=== PATIENT | male | born 1975 | race Caucasian/White ===

== ENCOUNTER 2018-09-22 12:46 | Emergency (ER) | payer MEDICAID, BC, SELFPAY ==
[2018-09-22 12:47] VITALS: BP 169/113; PULSE 108; RESP 26; TEMP 36.6; O2SAT 97; BMI 36.9
--- NOTE | 2018-09-22 13:07 | CT_ITS ---
STUDY: CT ABDOMEN AND PELVIS WITHOUT CONTRAST REASON FOR EXAM: Male, 43 years old. Left flank pain. RADIATION DOSAGE (If Supplied By Facility): CTDIvol = ( 24.16 ) mGy, DLP = ( 1424.19 ) mGycm TECHNIQUE: Transaxial images were obtained from the dome of the diaphragm to the symphysis pubis without oral contrast, and without intravenous contrast. Sagittal and coronal images were reconstructed. Individualized dose optimization techniques were used for this CT. COMPARISON: None. FINDINGS: Mild degree of increased markings at the lung bases suggestive of bibasilar atelectasis. The visualized portions of the heart are within normal limits. There is decreased attenuation of the liver consistent with steatosis. Normal gallbladder and extrahepatic biliary system. Normal spleen. Normal pancreas. Normal bilateral adrenal glands. Normal right kidney. Normal left kidney. Normal visualized stomach. Normal small intestine. Normal colon. The appendix is visualized and appears normal. Normal abdominal aorta. Normal inferior vena cava. There is borderline retroperitoneal lymphadenopathy with enlarged nodes no greater than 10mm in the short axis diameter. There is a 3 mm calculus along the left side of the bladder base suggestive of a recently passed left ureteral calculus. Small bilateral inguinal hernias containing fat. There are mild degenerative changes of the visualized lumbar spine. CT/Abdomen/Pelvis without Cont IMPRESSION: Findings in keeping with a recently passed 3 mm left ureteral calculus. Fatty infiltration of the liver. Electronically Signed: Uday Thayer MD at 14:22 EST , Service support ,
[2018-09-22] MEDS: Ondansetron 4 MG/2 ML Vial IV (13:15)
[2018-09-22] MEDS: Ketorolac 30 MG/ML Syringe 15 MG IV (13:15)
[2018-09-22] MEDS: morphine 8 MG/ML Syringe IV (13:15)
[2018-09-22] MEDS: 0.9% Normal Saline 1,000 ML 250 ML IV (13:16)
[2018-09-22 13:25] LABS: Absolute Lymphocyte Count 1.37 X10^3/ul (0.83-4.51); Absolute Neutrophil Count 5.8 X10^3/uL (2.0-7.7); Basophil# 0.03 X10^3/uL; Basophil% 0.4 % (0-1); Eosinophil# 0.16 X10^3/uL; Hematocrit 43.9 % (40-54); Hemoglobin 14.7 g/dl (13.0-16.5); Lymphocyte # 1.37 X10^3/ul (4.0); Lymphocyte % 17.4 % (19-41); Mean Corp Hgb Conc 33.5 g/gl (32-36); Mean Corpuscular Hgb 29.9 pg (27.0-32.0); Mean Corpuscular Volume 89.4 fL (80-94); Mean Platelet Vol. 9.8 fl (6.2-12.0); Monocyte# 0.49 X10^3/uL; Monocyte% 6.2 % (0-10); Neutrophil # 5.82 X10^3/uL (2.7-7.7); Neutrophil % 73.7 % (47-70); POSITIVE COUNT NO; POSITIVE DIFFERENTIAL NO; POSITIVE MORPHOLOGY NO; Platelet Count 228 K/mm3 (150-450); RBC Distribution Width CV 13.8 % (11.6-14.6); RBC Distribution Width SD 44.7 fl (35.1-43.9); Red Blood Count 4.91 M/mm3 (4.6-6.2); White Blood Count 7.9 K/mm3 (4.4-11.0)
[2018-09-22 13:30] LABS: Anion Gap 10 (5-15); BUN 17 mg/dL (7-18); BUN/Creat Ratio 13.7 RATIO (10-20); Calcium,Total 9.1 mg/dL (8.5-10.1); Chloride 103 mmol/L (98-107); Creatinine, Serum 1.24 mg/dL (0.70-1.30); EST Glomerular Filtration Rate 68 mL/min (>60); Est Glom Filt Rate - Afr Amer 82 mL/min (>60); Glucose 173 mg/dL (74-106); Potassium 3.9 mmol/L (3.5-5.1); Sodium Level 141 mmol/L (136-145)
[2018-09-22 13:33] LABS: Mucous, Urine 0 SEEN /hpf (<or=2+); Red Blood Cells-Urine 0 SEEN /hpf (0-5)
[2018-09-22 13:45] LABS: Color, Urine Yellow (Yellow); Glucose, Dipstick Normal (Normal); Ketone-Dipstick Negative (Negative); Leukocyte Esterase-Dipstick 25 /ul (Negative); Nitrite-Dipstick Negative (Negative); Occult Blood-Urine 250 /ul (Negative); Protein-Dipstick 30 mg/dl (Negative); Specific Gravity, Urine 1.025 (1.002-1.030); Urine Clarity Sl. Cloudy (Clear); Urine Urobilinogen Normal (Normal)
[2018-09-22 13:50] LABS: Urine Bilirubin Dipstick 1 mg/dL (Negative)
[2018-09-22 13:53] LABS: Bacteria 1+ /hpf (None Seen); Squamous Epithelial Cells - UA 0-5 SEEN /hpf (0-5); White Blood Cells 25-50 SEEN /hpf (0-5)
--- NOTE | 2018-09-22 14:34 | ED.VISSUMM ---
- ER Visit Summary Date of Service: 09/22/18 Chief Complaint: Severe left flank pain radiating anteriorly History of Present Illness: The patient is a 43 M who has history of ureteral calculus 2005 presents with intermittent colicky pain left flank for the past 3 days with mild hematuria. At 10:30 AM he developed abrupt onset colicky severe left flank pain radiating to the left lower quadrant. He denies testicular pain. He denies dysuria. He does report urgency. He denies history of hypertension. He and his state when he has severe pain his blood pressure goes up. He does report nausea with dry heaves. He denies trauma. He denies rash. He denies fever, chills night sweats. He has no other complaints. Physical Examination: Patient appears in obvious discomfort. He is diaphoretic tachycardic with elevated blood pressure. He is unable to find a position of comfort and is pacing around the examination bed. HEENT exam is unremarkable. Heart is regular without murmur, gallop or rub. Lungs are clear to auscultation. Abdomen soft nontender. Equivocal left flank pain. No dermatologic lesion or rash noted. Neuro exam is nonfocal. Test Results: CBC is normal. Basic metabolic panel was elevated glucose of 173. UA is remarkable for leukoesterase and blood and micro reveals 25-50 WBCs and 1+ bacteria. There is no epithelial cells. CT reveals recently passed 3 mm stone. Emergency Department Course and Treatment: IV was established. He received 15 mg Toradol IV push and 8 mg of morphine IV push. He also received 4 mg of Zofran for his nausea and dry heaves. CT was obtained to evaluate for obstructing stone especially since there is evidence of infection. Since there is evidence of infection he received 1 g of Rocephin IV piggyback. Since the stone passed he will be able to be discharged home on p.o. antibiotics. Because his blood sugar is elevated and blood pressure is elevated will refer to primary care physician. Since he does not have a physician he was referred to Dr. Bethel Pena. Treatment Plan: Oral antibiotics, outpatient follow-up referral to family practice for blood pressure reassessment and glucose reassessment Disposition: Discharge to home with spouse after Rocephin has infused Impression: 1. Left flank pain secondary to left ureteral lithiasis 2. Urinary tract infection 3. Hyperglycemia in a nondiabetic 4. Hypertension in nonhypertensive patient asymptomatic This note was generated with [employer] dictation software. It may contain incorrect words, spelling, and punctuation that were not noted in review of the chart prior to signing ED Disposition - Plan for ED Patient: Disposition: Home or Assisted Living Instructions: ED Stone Renal W Colic, ED UTI Cystitis Male, ED Hyperglycemia New Susp Diabetes, ED Hypertension Poss Prescriptions: Ciprofloxacin [Cipro] 500 mg PO BID #14 tab Referrals: Care Physician,No Primary [Primary Care Provider] - Bethel Pena MD [STAFF PHYSICIAN] - 1-2 Weeks
[2018-09-22] MEDS: Ceftriaxone 1 GM/50 ML BAG IV (14:46)
[2018-09-22 14:49] VITALS: PULSE 87; RESP 18; O2SAT 96
[2018-09-22 15:37] VITALS: BP 167/95; PULSE 93; RESP 18; O2SAT 97
== END 2018-09-22 15:39 | disposition home or self-care (01) ==
PROVIDERS: Emergency Provider Emergency Medicine
DX: N20.1 Calculus of ureter (principal); N39.0 Urinary tract infection, site not specified; R73.9 Hyperglycemia, unspecified; I10 Essential (primary) hypertension; Z87.442 Personal history of urinary calculi
CPT/HCPCS: 74176; 80048; 81001; 85025; 87086; 96361; 96365; 96375; 99283; J7030; A4216; J2405

== ENCOUNTER 2018-12-12 01:52 | Emergency (ER) | payer BC, SELFPAY ==
[2018-12-12 01:53] VITALS: BP 162/101; PULSE 82; RESP 16; TEMP 36.5; O2SAT 95; BMI 36.4
[2018-12-12 02:04] VITALS: BP 126/105; PULSE 92; RESP 16; O2SAT 96
--- NOTE | 2018-12-12 02:06 | ED.DCSUM_ITS ---
- ER Visit Summary Date of Service: 12/12/18 Chief Complaint: Possible foreign body left ear History of Present Illness: The patient is a 43 M who presents or if he thinks there may be a piece of a Q-tip in his left ear. He was cleaning his ears but states only half of the cotton came out. No pain. This occurred just before presentation. He has no other complaints. Physical Examination: Afebrile vitals unremarkable except blood pressure 162/101 There is no foreign body visualized in the left ear the tympanic membrane is normal Test Results: Not indicated Emergency Department Course and Treatment: Examination does not show foreign body. Patient was reassured and discharged. Treatment Plan: [] Disposition: Discharge Impression: Medical screening exam This note was generated with [employer] dictation software. It may contain incorrect words, spelling, and punctuation that were not noted in review of the chart prior to signing ED Disposition - Plan for ED Patient: Referrals: Care Physician,No Primary [Primary Care Provider] -
--- NOTE | 2018-12-12 02:06 | ED.DEP ---
ED Disposition - Plan for ED Patient: Referrals: Care Physician,No Primary [Primary Care Provider] - Additional Instructions: You were seen today due to concern for part of a Q-tip in her left ear. Examination did not show any foreign body fortunately.
[2018-12-12 02:15] VITALS: BP 126/105; PULSE 79; RESP 16; O2SAT 98
== END 2018-12-12 02:17 | disposition home or self-care (01) ==
LOC: ED 02:13
PROVIDERS: Emergency Provider Emergency Medicine
DX: Z00.00 Encounter for general adult medical examination without abnormal findings (principal); Z03.89 Encounter for observation for other suspected diseases and conditions ruled out
CPT/HCPCS: 99282